=== PATIENT | female | born 1990 | race Hispanic/Latino ===

== ENCOUNTER 2021-08-24 21:30 | Observation (INO) | payer OTHER, SELFPAY ==
[2021-08-24 22:03] LABS: #Basophils 0.1 thou/uL (0.0-0.2); #Eosinphils 0.2 thou/uL (0.0-0.7); #Monocytes 0.7 thou/uL (0.11-0.59); #Neutrophils 6.4 thou/uL (1.40-6.50); %Eosinophils 2.5 % (0.0-10.0); %Lymphocytes 21.3 % (21.0-51.0); %Monocytes 7.3 % (0.0-10.0); %Neutrophils 67.9 % (42.0-75.0); Hemoglobin 13.4 g/dL (12.0-16.0); Mean Corpuscular HGB CONC 33.3 g/dL (32.0-36.0); Mean Platelet Volume 7.1 fL (7.4-10.4); Platelet Count 344 thou/uL (130-400); RBC Distribution Width 11.4 % (11.5-14.5); Red Blood Cell (RBC) Count 4.31 mill/uL (4.20-5.40); White Blood Cell (WBC) Count 9.4 thou/uL (4.8-10.8)
[2021-08-24 22:06] LABS: Bilirubin Negative (Negative); Blood, Urine Negative (Negative); Clarity Clear (Clear); Glucose, Urine (Dipstick) Normal (Negative); Ketone, Urine 60 mg/dL (Negative); Leukocyte 500 Leu/uL (Negative); Nitrite Negative (Negative); Protein, Urine (Dipstick) 20 mg/dL (Neg-Trace); RBC/HPF 0-3 HPF (0-3); Specific Gravity, Urine 1.027 (1.002-1.036); Urobilinogen Normal mg/dL (Less than 2); pH, Urine 6.5 (5.0-9.0)
[2021-08-24 22:07] LABS: Bacteria/HPF 2+ HPF (None Seen); Pregu Control Background? CLEAR/WHITE (CLR/WHITE); Pregu Control Bar Appear? YES (CONTROL BAR); Specific Gravity 1.027 (1.002-1.036)
[2021-08-24 22:08] LABS: Pregnancy Test - Urine (BHCG) POSITIVE (Negative)
[2021-08-24] MEDS ORDERED: Morphine 4 MG/ML VIAL ONE (22:09)
[2021-08-24] MEDS ORDERED: Ondansetron PF 4 MG/2 ML Vial ONE (22:09)
[2021-08-24 22:25] LABS: ALT (SGPT) 48 U/L (8-55); AST (SGOT) 20 U/L (5-34); Albumin 4.2 g/dL (3.5-5.0); Alkaline Phosphatase 88 U/L (40-110); Anion Gap 15 mmol/L (10-20); BUN (Urea Nitrogen) 5 mg/dL (7.0-18.7); Bilirubin, Total 0.5 mg/dL (0.2-1.2); Calc. Creatinine Clearance 0 mL/min (70-130); Carbon Dioxide 22 mmol/L (22-29); Chloride 103 mmol/L (98-107); Globulin 3.3 g/dL (2.4-3.5); Glucose 103 mg/dL (70-105); Lipase 18 U/L (8-78); Potassium 3.3 mmol/L (3.5-5.1); Protein, Total 7.5 g/dL (6.0-8.3); Sodium 137 mmol/L (136-145)
[2021-08-24] MEDS ORDERED: Insulin Regular 300 UNITS/3 ML VIAL ONE (23:14)
[2021-08-25] MEDS ORDERED: cefTRIAXone\\ROCEPHIN 1 GM VIAL ONE (02:12)
[2021-08-25] MEDS ORDERED: metroNIDAZOLE 500 MG in Premix Bag 1 BAG IVPB SCH ×3 (02:45→20:00)
[2021-08-25] MEDS ORDERED: Morphine 2 MG/ML VIAL SLOW IVP PRN (04:37)
[2021-08-25] MEDS ORDERED: Ondansetron PF 4 MG/2 ML Vial IVP PRN (04:45)
[2021-08-25] MEDS ORDERED: Ondansetron ODT 4 MG TAB SL PRN (04:45)
[2021-08-25] MEDS ORDERED: Sodium Chloride 0.9% 1,000 ML IV SCH (04:45)
[2021-08-25 04:46] VITALS: BMI 29.0
[2021-08-25 06:30] LABS: SARS-CoV-2 NAA Rapid Test Not Detected (NotDetected)
[2021-08-25 10:58] LABS: #Eosinphils 0.2 thou/uL (0.0-0.7); #Lymphocytes 2.3 thou/uL (1.20-3.40); #Monocytes 0.6 thou/uL (0.11-0.59); #Neutrophils 4.4 thou/uL (1.40-6.50); %Basophils 0.4 % (0.0-1.0); %Lymphocytes 30.1 % (21.0-51.0); %Monocytes 7.8 % (0.0-10.0); %Neutrophils 58.7 % (42.0-75.0); Hemoglobin 13.3 g/dL (12.0-16.0); Mean Corpuscular HGB CONC 32.9 g/dL (32.0-36.0); Mean Corpuscular Hemoglobin 30.7 pg (27.0-31.0); Mean Corpuscular Volume 93.3 fL (78.0-98.0); Mean Platelet Volume 7.5 fL (7.4-10.4); Platelet Count 328 thou/uL (130-400); RBC Distribution Width 11.4 % (11.5-14.5); Red Blood Cell (RBC) Count 4.33 mill/uL (4.20-5.40); White Blood Cell (WBC) Count 7.6 thou/uL (4.8-10.8)
[2021-08-25 11:18] LABS: ALT (SGPT) 42 U/L (8-55); AST (SGOT) 17 U/L (5-34); Albumin 3.9 g/dL (3.5-5.0); Alkaline Phosphatase 78 U/L (40-110); Anion Gap 12 mmol/L (10-20); BUN (Urea Nitrogen) Less than 4 mg/dL (7.0-18.7); Bilirubin, Total 0.5 mg/dL (0.2-1.2); Calc. Creatinine Clearance 172 mL/min (70-130); Calcium 8.5 mg/dL (7.8-10.44); Carbon Dioxide 23 mmol/L (22-29); Chloride 106 mmol/L (98-107); Glucose 78 mg/dL (70-105); Potassium 3.2 mmol/L (3.5-5.1); Protein, Total 6.9 g/dL (6.0-8.3); Sodium 138 mmol/L (136-145)
[2021-08-25] MEDS ORDERED: Lidocaine 1% w/Epinephrine 1:100K 20 ML VIAL ONE ×2 (13:43→15:08)
[2021-08-25] MEDS ORDERED: Bupivacaine 0.25% 10 ML VIAL ONE ×2 (13:43→15:08)
[2021-08-25] MEDS ORDERED: fentaNYL Citrate/PF 100 MCG/2 ML SYRINGE ONE (14:40)
[2021-08-25] MEDS ORDERED: Glycopyrrolate 0.2 MG/ML 5 ML SYRINGE ONE (15:21)
[2021-08-25] MEDS ORDERED: Succinylcholine 200 MG/10 ml SYRINGE FS ONE (15:21)
[2021-08-25] MEDS ORDERED: PHENYLEPHRINE-NS 100 MCG/ML 10 ML SYRINGE ONE (15:21)
[2021-08-25] MEDS ORDERED: Lidocaine 1% PF 5 ML VIAL ONE (15:21)
[2021-08-25] MEDS ORDERED: Rocuronium Bromide 10 MG/ML (10ML VIAL) ONE (15:21)
[2021-08-25] MEDS ORDERED: PROPOFOL 200 MG/20 ML VIAL ONE (15:21)
[2021-08-25] MEDS ORDERED: diphenhydrAMINE 50 MG/ML VIAL ONE (15:21)
[2021-08-25] MEDS ORDERED: HYDROcodone/Acetaminophen 5/325 mg Tablet PO PRN ×2 (17:15)
[2021-08-25] MEDS ORDERED: Acetaminophen 325 MG TAB PO PRN (17:38)
[2021-08-25] MEDS ORDERED: Ibuprofen 200 MG TAB PO PRN (17:38)
[2021-08-25] MEDS ORDERED: Ondansetron PF 4 MG/2 ML Vial ONE (17:39)
[2021-08-25] MEDS ORDERED: Fentanyl 100 MCG/2 ML VIAL ONE (17:39)
[2021-08-25 19:22] VITALS: BP 119/68; TEMP 98.6
[2021-08-26] MEDS ORDERED: cefTRIAXone\\ROCEPHIN 1 GM in Sodium Chloride 0.9% 100 ML IVPB SCH (02:00)
== END 2021-08-25 20:45 | disposition home or self-care (01) ==
LOC: ERS 21:30 → SJJU 08-25 01:26
PROVIDERS: ADMIT Surgery; ATTEND Surgery
PROC: 0FT44ZZ Resection of Gallbladder, Percutaneous Endoscopic Approach (ICD-10-PCS; principal; 2021-08-25)
DX: O99.611 Diseases of the digestive system complicating pregnancy, first trimester (principal); K80.10 Calculus of gallbladder with chronic cholecystitis without obstruction; K82.1 Hydrops of gallbladder; Z3A.00 Weeks of gestation of pregnancy not specified; Z20.822 Contact with and (suspected) exposure to COVID-19; Z79.899 Other long term (current) drug therapy
CPT/HCPCS: 36415; 76705; 76856; 80053; 81003; 81015; 81025; 83690; 84702; 85025; 88304; 96361; 96365; 96367; 96375; 96376; C1713; G0378; J0696; J1200; J1815; J2270; J2405; J2704; J3010; J7050; S0020; U0002

== ENCOUNTER 2021-11-15 19:50 | Emergency (ER) | payer OTHER, SELFPAY ==
[2021-11-15 20:59] LABS: Bilirubin Negative (Negative); Blood, Urine Negative (Negative); Clarity Clear (Clear); Glucose, Urine (Dipstick) Normal (Negative); Ketone, Urine Negative (Negative); Leukocyte 250 Leu/uL (Negative); Nitrite Negative (Negative); Protein, Urine (Dipstick) Negative (Neg-Trace); RBC/HPF 0-3 HPF (0-3); Specific Gravity, Urine 1.006 (1.002-1.036); Squamous Epithelial 0-3 HPF (0-3); Urobilinogen Normal mg/dL (Less than 2); pH, Urine 6.5 (5.0-9.0)
[2021-11-15 21:01] LABS: Bacteria/HPF 1+ HPF (None Seen)
== END 2021-11-15 22:49 | disposition home or self-care (01) ==
LOC: ERS 19:50
DX: O99.891 Other specified diseases and conditions complicating pregnancy (principal); R10.32 Left lower quadrant pain; Z3A.16 16 weeks gestation of pregnancy
CPT/HCPCS: 81003; 81015; 87086; 87480; 87510; 87660; 99284

== ENCOUNTER 2022-10-11 15:48 | Emergency (ER) | payer MEDICAID, SELFPAY ==
[2022-10-11] MEDS ORDERED: Ketorolac Tromethamine 30 MG/ML VIAL ONE (16:20)
== END 2022-10-11 16:55 | disposition home or self-care (01) ==
LOC: ERS 15:48
DX: R07.89 Other chest pain (principal); R05.9 Cough, unspecified; R06.02 Shortness of breath
CPT/HCPCS: 71046; 93005; 96372; J1885

== ENCOUNTER 2023-10-11 14:15 | Emergency (ER) | payer SELFPAY ==
[2023-10-11] MEDS ORDERED: Ibuprofen 800 MG TAB ONE (16:10)
== END 2023-10-11 16:21 | disposition home or self-care (01) ==
LOC: ERS 14:15
DX: B08.4 Enteroviral vesicular stomatitis with exanthem (principal)
CPT/HCPCS: 99282